=== PATIENT | male | born 1985 | race Native Hawaiian/Other Pacific Islander ===

== ENCOUNTER 2020-12-14 17:11 | Emergency (ER) | payer OTHER ==
[~2020-12-14] VITALS: Ht 172 cm; Wt 93.1 kg
[2020-12-14 17:16] VITALS: BP 142/95
[2020-12-14] MEDS ORDERED: morphine INJ 10 MG/ML 1ML (SYR OR VIAL) IM STA (17:21)
[2020-12-14] MEDS ORDERED: ONDANSETRON 4 MG (ZOFRAN) ORAL DISSOLVE TAB PO STA (17:21)
[2020-12-14] MEDS ORDERED: KETOROLAC 60 MG/2 ML VIAL IM ONE (17:30)
--- NOTE | 2020-12-14 17:45 | Diagnostic Imaging Report ---
INDICATION: Left arm pain. AP ad lateral views of the left humerus are obtained. No fracture or acute bony abnormality seen. IMPRESSION: Negative left humerus. Dictated by: Dictated on workstation # [id number]
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
[2020-12-14] MEDS ORDERED: ACHD5005 PO (18:01)
== END 2020-12-14 18:05 | disposition home or self-care (01) ==
LOC: ER FS 17:13
DX: S46.212A Strain of muscle, fascia and tendon of other parts of biceps, left arm, initial encounter (principal); F17.210 Nicotine dependence, cigarettes, uncomplicated; Z88.0 Allergy status to penicillin; X50.0XXA Overexertion from strenuous movement or load, initial encounter
CPT/HCPCS: 73060; 99283; A4565

== ENCOUNTER 2022-02-12 18:05 | Emergency (ER) | payer SELFPAY ==
[~2022-02-12] VITALS: Ht 172.7 cm; Wt 81.2 kg
[~2022-02-12 18:05] MED LIST: ACHD5005 PO
[2022-02-12] MEDS ORDERED: NS IV 1000 ML 1,000 ML IV STA (18:13)
--- NOTE | 2022-02-12 18:23 | ED General ---
General Stated Complaint: SHAKY,SWEATY Source of Information: Patient History of Present Illness Date Seen by Provider: Feb 12, 2022 Time Seen by Provider: 18:05 Initial Comments 36-year-old male presenting by EMS with complaints of sudden onset of sweating and feeling his heart race. He was sitting on the couch when this started for him. He denies any activity or triggering symptoms. He states that drinking water was helping him at home. He did have something similar to this happened about a month earlier but it passed on its own. It was not as severe when that occurred. Since he had felt like his heart was racing he had EMS bring him to the emergency department for evaluation. He states he does not have a primary care provider or anyone to follow-up with. He has been having some dental pain on the right lower posterior tooth for the last few days. Timing/Duration: 1 Hour Modifying Factors: improves with Other (drinking water helped his symptoms) Associated Systoms: No Chest Pain, No Cough; Diaphoresis; No Fever/Chills, No Headaches, No Loss of Appetite, No Malaise, No Nausea/Vomiting, No Rash, No Seizure, No Shortness of Air, No Syncope, No Weakness Allergies and Home Medications Allergies Coded Allergies: Penicillins (Verified Allergy, Unknown, 12/14/20) Patient Home Medication List Home Medication List Reviewed: Yes Clindamycin HCl (Clindamycin HCl) 300 Mg Capsule, 300 MG PO TID Prescribed by: YULIYA ZAYAS on 02/12/221957 Hydrocodone/Acetaminophen (Hydrocodone-Acetamin 5-325 mg) 1 Each Tablet, 1 TAB PO Q4H PRN for PAIN-MODERATE (5-7) Prescribed by: ELSA SOSA on 12/14/201800 Review of Systems Review of Systems Constitutional: see HPI, diaphoresis EENTM: see HPI, mouth pain (dental pain right lower posterior tooth) Respiratory: no symptoms reported Cardiovascular: palpitations Gastrointestinal: no symptoms reported Genitourinary: no symptoms reported Musculoskeletal: no symptoms reported Skin: no symptoms reported Psychiatric/Neurological: No Symptoms Reported Hematologic/Lymphatic: Denies Blood Clots Past Kgjyckd-Izjyru-Wvrdur Hx Seasonal Allergies Seasonal Allergies: No Past Medical History Surgeries: Yes Orthopedic Respiratory: No Cardiac: No Neurological: No Genitourinary: No Gastrointestinal: No Musculoskeletal: No Endocrine: No HEENT: No Cancer: No Psychosocial: No Integumentary: No Blood Disorders: No Physical Exam Vital Signs Vital Signs - First Documented 02/12/22 18:10 Temp 36.4 Pulse 65 Resp 16 B/P (MAP) 145/84 (104) Pulse Ox 100 O2 Delivery Room Air Capillary Refill : Height, Weight, BMI Height: '" Weight: lbs. oz. kg; 31.00 BMI Method: General Appearance: WD/WN, Anxious HEENT: PERRL/EOMI, Moist Mucous Membranes, Other (dental albert right lower posterior tooth without gum swelling or abscess) Neck: Full Range of Motion, Normal Inspection, Non Tender, Supple Respiratory: Chest Non Tender, Lungs Clear, Normal Breath Sounds, No Accessory Muscle Use, No Respiratory Distress Cardiovascular: Regular Rate, Rhythm, No Murmur, Normal Peripheral Pulses Gastrointestinal: Normal Bowel Sounds, No Pulsatile Mass, Non Tender, Soft Rectal: Deferred Extremity: Normal Capillary Refill, Normal Inspection, No Calf Tenderness, No Pedal Edema Neurologic/Psychiatric: Alert, Oriented x3, heat treater head II-XII Norm as Tested Skin: Normal Color, Warm/Dry Progress/Results/Core Measures Suspected Sepsis SIRS Temperature: Pulse: Respiratory Rate: Laboratory Tests 02/12/22 18:15: White Blood Count 8.3 Blood Pressure / Mean: Laboratory Tests 02/12/22 18:15: Creatinine 1.08, INR Comment 1.0, Platelet Count 208, Total Bilirubin 0.3 Results/Orders Lab Results Laboratory Tests Test 02/12/22 18:15 02/12/22 19:30 Range/Units White Blood Count 8.3 4.3-11.0 10^3/uL Red Blood Count 4.61 4.30-5.52 10^6/uL Hemoglobin 14.8 13.3-17.7 g/dL Hematocrit 43 40-54 % Mean Corpuscular Volume 93 80-99 fL Mean Corpuscular Hemoglobin 32 25-34 pg Mean Corpuscular Hemoglobin Concent 35 32-36 g/dL Red Cell Distribution Width 12.5 10.0-14.5 % Platelet Count 208 130-400 10^3/uL Mean Platelet Volume 11.9 9.0-12.2 fL Immature Granulocyte % (Auto) 0 % Neutrophils (%) (Auto) 62 42-75 % Lymphocytes (%) (Auto) 29 12-44 % Monocytes (%) (Auto) 6 0-12 % Eosinophils (%) (Auto) 2 0-10 % Basophils (%) (Auto) 1 0-10 % Neutrophils # (Auto) 5.1 1.8-7.8 10^3/uL Lymphocytes # (Auto) 2.4 1.0-4.0 10^3/uL Monocytes # (Auto) 0.5 0.0-1.0 10^3/uL Eosinophils # (Auto) 0.2 0.0-0.3 10^3/uL Basophils # (Auto) 0.1 0.0-0.1 10^3/uL Immature Granulocyte # (Auto) 0.0 0.0-0.1 10^3/uL Prothrombin Time 13.8 12.2-14.7 SEC INR Comment 1.0 0.8-1.4 Activated Partial Thromboplast Time 24 24-35 SEC Sodium Level 139 135-145 MMOL/L Potassium Level 3.3 L 3.6-5.0 MMOL/L Chloride Level 102 98-107 MMOL/L Carbon Dioxide Level 23 21-32 MMOL/L Anion Gap 14 5-14 MMOL/L Blood Urea Nitrogen 13 7-18 MG/DL Creatinine 1.08 0.60-1.30 MG/DL Estimat Glomerular Filtration Rate 92 BUN/Creatinine Ratio 12 Glucose Level 140 H 70-105 MG/DL Calcium Level 9.5 8.5-10.1 MG/DL Corrected Calcium 8.5-10.1 MG/DL Magnesium Level 1.6 1.6-2.4 MG/DL Total Bilirubin 0.3 0.1-1.0 MG/DL Aspartate Amino Transf (AST/SGOT) 17 5-34 U/L Alanine Aminotransferase (ALT/SGPT) 15 0-55 U/L Alkaline Phosphatase 79 40-136 U/L Troponin I < 0.30 <0.30 NG/ML Pro-B-Type Natriuretic Peptide 45.4 <75.0 PG/ML Total Protein 7.2 6.4-8.2 GM/DL Albumin 4.6 H 3.2-4.5 GM/DL Lipase 22 8-78 U/L Serum Alcohol < 10 <10 MG/DL Urine Color YELLOW Urine Clarity CLEAR Urine pH 7.0 5-9 Urine Specific [place] 1.015 L 1.016-1.022 Urine Protein NEGATIVE NEGATIVE Urine Glucose (UA) NEGATIVE NEGATIVE Urine Ketones NEGATIVE NEGATIVE Urine Nitrite NEGATIVE NEGATIVE Urine Bilirubin NEGATIVE NEGATIVE Urine Urobilinogen 0.2 < = 1.0 MG/DL Urine Leukocyte Esterase NEGATIVE NEGATIVE Urine RBC (Auto) NEGATIVE NEGATIVE Urine RBC NONE /HPF Urine WBC RARE /HPF Urine Squamous Epithelial Cells NONE /HPF Urine Crystals NONE /LPF Urine Bacteria NEGATIVE /HPF Urine Casts NONE /LPF Urine Mucus SMALL H /LPF Urine Culture Indicated NO Urine Opiates Screen NEGATIVE NEGATIVE Urine Oxycodone Screen NEGATIVE NEGATIVE Urine Methadone Screen NEGATIVE NEGATIVE Urine Propoxyphene Screen NEGATIVE NEGATIVE Urine Barbiturates Screen NEGATIVE NEGATIVE Ur Tricyclic Antidepressants Screen NEGATIVE NEGATIVE Urine Phencyclidine Screen NEGATIVE NEGATIVE Urine Amphetamines Screen NEGATIVE NEGATIVE Urine Methamphetamines Screen NEGATIVE NEGATIVE Urine Benzodiazepines Screen NEGATIVE NEGATIVE Urine Cocaine Screen NEGATIVE NEGATIVE Urine Cannabinoids Screen POSITIVE H NEGATIVE My Orders Orders - YULIYA ZAYAS MD Cbc With Automated Diff (02/12/22 18:13) Magnesium (02/12/22 18:13) Ekg Tracing (02/12/22 18:13) Comprehensive Metabolic Panel (02/12/22 18:13) Protime With Inr (02/12/22 18:13) Partial Thromboplastin Time (02/12/22 18:13) O2 (02/12/22 18:13) Monitor-Rhythm Ecg Trace Only (02/12/22 18:13) Ed Iv/Invasive Line Start (02/12/22 18:13) Lipase (02/12/22 18:13) Troponin I Fs (02/12/22 18:13) Probnp Fs (02/12/22 18:13) Ua Culture If Indicated (02/12/22 18:13) Drug Screen Stat (Urine) (02/12/22 18:13) Alcohol (02/12/22 18:13) Ns Iv 1000 Ml (Sodium Chloride 0.9%) (02/12/22 18:13) Clindamycin Capsule (Cleocin Capsule) (02/12/22 19:53) Potassium Chloride (Tablet) (K Dur Table (02/12/22 19:53) Vital Signs/I&O 02/12/22 02/12/22 18:10 20:04 Temp 36.4 Pulse 65 59 Resp 16 17 B/P (MAP) 145/84 (104) 115/59 Pulse Ox 100 99 O2 Delivery Room Air Room Air Capillary Refill : Progress Note #1: Progress Note Check basic labs and urinalysis as well as electrocardiogram and cardiac enzymes. Give normal saline 1 L IV fluid bolus for hydration. Progress Note #2: Progress Note Labs all appear stable without acute significant abnormality other than mild hypokalemia and then he had THC in urine which he admits to using. ECG was not showing ischemia and troponin and proBNP were normal as well. Counseled patient and family on findings and results. We will have him increase potassium in his diet and follow-up with the clinic to see if they needed to do a Holter monitor or any further testing. We will try treating for the dental infection in case that might be triggering some of the symptoms as well. ECG Initial ECG Impression Date: Feb 12, 2022 Initial ECG Impression Time: 18:32 Initial ECG Rate: 57 Initial ECG Rhythm: Normal Sinus Initial ECG Comparisson: No Previous ECG Available Comment Sinus bradycardia with a heart rate of 57 bpm. TN interval 126 ms. Incomplete right bundle branch block. QT interval 370 ms with a QTc interval 363 ms. There is no acute ST elevation. There is no prior tracing available for comparison. Departure Impression Primary Impression: Heart palpitations Additional Impressions: Dental caries Hypokalemia Disposition: HOME, SELF-CARE Condition: Stable Departure-Patient Inst. Decision time for Depature: 19:56 Referrals: ERNST LINK APRN (PCP) Primary Care Physician [facility] (Family) Primary Care Physician Patient Instructions: Palpitations ED, Tooth Decay ED, High Potassium Diet, Hypokalemia (DC) Add. Discharge Instructions: Stay well-hydrated and drink plenty of fluids. Try to increase the potassium rich foods in your diet. Take the full course of antibiotics to treat for the dental infection. The primary care clinic may want to have additional testing to monitor her heart rate to see if there is any arrhythmia or irregular heartbeat. They will do this by ordering a Holter monitor or having you see cardiology for follow-up. If you have worsening symptoms or new problems check back with the clinic or return for further evaluation. Scripts Clindamycin HCl (Clindamycin HCl) 300 Mg Capsule 300 MG PO TID for dental caries for 10 Days, #30 CAP 0 Refills Prov: YULIYA ZAYAS MD 02/12/22 YULIYA ZAYAS MD Feb 12, 2022 18:23
[2022-02-12 18:31] LABS: BASOPHILS # (AUTO) 0.1 10^3/uL (0.0-0.1); BASOPHILS % (AUTO) 1 % (0-10); EOSINOPHILS # (AUTO) 0.2 10^3/uL (0.0-0.3); EOSINOPHILS % (AUTO) 2 % (0-10); HEMATOCRIT 43 % (40-54); HEMOGLOBIN 14.8 g/dL (13.3-17.7); LYMPHOCYTES # (AUTO) 2.4 10^3/uL (1.0-4.0); LYMPHOCYTES % (AUTO) 29 % (12-44); MEAN CORPUSCULAR HEMOGLOBIN 32 pg (25-34); MEAN CORPUSCULAR HGB CONC 35 g/dL (32-36); MEAN CORPUSCULAR VOLUME 93 fL (80-99); MEAN PLATELET VOLUME 11.9 fL (9.0-12.2); MONOCYTES # (AUTO) 0.5 10^3/uL (0.0-1.0); MONOCYTES % (AUTO) 6 % (0-12); NEUTROPHILS # (AUTO) 5.1 10^3/uL (1.8-7.8); NEUTROPHILS % (AUTO) 62 % (42-75); PLATELET COUNT 208 10^3/uL (130-400); WHITE BLOOD COUNT 8.3 10^3/uL (4.3-11.0)
[2022-02-12 18:41] LABS: PROTHROMBIN TIME PATIENT 13.8 SEC (12.2-14.7)
[2022-02-12 19:00] LABS: ALANINE AMINOTRANSFERASE 15 U/L (0-55); ALBUMIN 4.6 GM/DL (3.2-4.5); ALKALINE PHOSPHATASE 79 U/L (40-136); BILIRUBIN,TOTAL 0.3 MG/DL (0.1-1.0); BUN/CREATININE RATIO 12; CALCIUM 9.5 MG/DL (8.5-10.1); CARBON DIOXIDE 23 MMOL/L (21-32); CHLORIDE 102 MMOL/L (98-107); CREATININE SERUM 1.08 MG/DL (0.60-1.30); GFR ESTIMATED 92; GLUCOSE 140 MG/DL (70-105); LIPASE 22 U/L (8-78); MAGNESIUM 1.6 MG/DL (1.6-2.4); POTASSIUM 3.3 MMOL/L (3.6-5.0); SODIUM 139 MMOL/L (135-145); TOTAL PROTEIN 7.2 GM/DL (6.4-8.2)
[2022-02-12 19:40] LABS: BILIRUBIN,URINE NEGATIVE (NEGATIVE); CLARITY,URINE CLEAR; COLOR,URINE YELLOW; GLUCOSE, URINE (UA) NEGATIVE (NEGATIVE); KETONES,URINE NEGATIVE (NEGATIVE); LEUKOCYTE ESTERASE ,URINE NEGATIVE (NEGATIVE); NITRITE,URINE NEGATIVE (NEGATIVE); PROTEIN,URINE NEGATIVE (NEGATIVE)
[2022-02-12 19:47] LABS: BACTERIA,URINE NEGATIVE /HPF; WBC,URINE RARE /HPF
[2022-02-12 19:50] LABS: AMPHETAMINE SCREEN, URINE NEGATIVE (NEGATIVE); BARBITURATE SCREEN URINE NEGATIVE (NEGATIVE); BENZODIAZEPINES SCREEN URINE NEGATIVE (NEGATIVE); CANNABINOID SCREEN, URINE POSITIVE (NEGATIVE); COCAINE SCREEN URINE NEGATIVE (NEGATIVE); METHADONE STAT NEGATIVE (NEGATIVE); OPIATE SCREEN URINE NEGATIVE (NEGATIVE); OXYCODONE STAT NEGATIVE (NEGATIVE); PROPOXYPHENE STAT NEGATIVE (NEGATIVE); TRICYCLIC ANTIDEPRESSANTS SCRE NEGATIVE (NEGATIVE)
[2022-02-12] MEDS ORDERED: CLINDAMYCIN 150 MG (CLEOCIN) CAP PO STA (19:53)
[2022-02-12] MEDS ORDERED: KCL 20 MEQ TAB (K-DUR) PO STA (19:53)
[2022-02-12] MEDS ORDERED: CLIN-144 PO (19:58)
[2022-02-12 20:04] VITALS: BP 115/59
== END 2022-02-12 20:04 | disposition home or self-care (01) ==
LOC: EDUNIT# 18:05 → ER FS 18:08
DX: R00.2 Palpitations (principal); K02.9 Dental caries, unspecified; E87.6 Hypokalemia; R00.1 Bradycardia, unspecified; I45.10 Unspecified right bundle-branch block; Z28.310 Unvaccinated for COVID-19
CPT/HCPCS: 36415; 80053; 80306; 81000; 83690; 83735; 83880; 84484; 85025; 85610; 85730; 93041; G0480; 80320; 93005